=== PATIENT | female | born 1940 ===

== ENCOUNTER 2017-05-21 07:27 | Inpatient (IN) | payer OTHER ==
[~2017-05-21] VITALS: Ht 162.6 cm; Wt 86.2 kg
[~2017-05-21 07:27] MED LIST: CEFADROXIL500 MG PO; LISINOPRIL-HCTZ1 TA7 PO; METFORMIN HCL500 MG PO; PERCOCET 5/3251 TAB PO; XARELTO10 MG PO; ZOCOR40 MG; ZOCOR40 MG PO
[2017-05-28] MEDS ORDERED: PERCOCET 5-3251 EACH PO (14:42)
[2017-05-28] MEDS ORDERED: CEFADROXIL500 MG PO (14:42)
[2017-05-28] MEDS ORDERED: XARELTO10 MG PO (14:42)
== END 2017-05-28 16:44 | DRG 470 ==
LOC: O/R 05-26 06:30 → SURH 05-26 07:45 → SURG 05-27 13:40
PROVIDERS: Orthopaedic Surgery
PROC: 0SRD0J9 Replacement of Left Knee Joint with Synthetic Substitute, Cemented, Open Approach (ICD-10-PCS; principal; 2017-05-26 12:00)
DX: M17.12 Unilateral primary osteoarthritis, left knee (principal); D62 Acute posthemorrhagic anemia; M81.0 Age-related osteoporosis without current pathological fracture; I10 Essential (primary) hypertension; E11.9 Type 2 diabetes mellitus without complications

== ENCOUNTER 2017-05-28 18:43 | Inpatient (IN) | payer OTHER ==
[~2017-05-28] VITALS: Ht 167.6 cm; Wt 77.1 kg
[~2017-05-28 18:43] MED LIST changes: +PERCOCET 5-3251 EACH PO
[2017-06-03] MEDS ORDERED: XARELTO20 MG PO (10:57)
[2017-06-03] MEDS ORDERED: XARELTO15 MG PO (10:57)
[2017-06-03] MEDS ORDERED: VASOTEC10 MG PO (10:57)
== END 2017-06-03 19:21 | DRG 206 ==
LOC: ER 18:43 → MEDI 21:03 → SEC-K 21:03 → MEDI 05-29 14:54
PROC: 4A033R1 Measurement of Arterial Saturation, Peripheral, Percutaneous Approach (ICD-10-PCS; principal; 2017-05-28)
PROC: 3E0F7GC Introduction of Other Therapeutic Substance into Respiratory Tract, Via Natural or Artificial Opening (ICD-10-PCS; 2017-05-28)
PROC: CB121ZZ Planar Nuclear Medicine Imaging of Lungs and Bronchi using Technetium 99m (Tc-99m) (ICD-10-PCS; 2017-05-28)
PROC: 4A12X4Z Monitoring of Cardiac Electrical Activity, External Approach (ICD-10-PCS; 2017-05-29)
PROC: BB24ZZZ Computerized Tomography (CT Scan) of Bilateral Lungs (ICD-10-PCS; 2017-05-31)
DX: J95.89 Other postprocedural complications and disorders of respiratory system, not elsewhere classified (principal); Y83.8 Other surgical procedures as the cause of abnormal reaction of the patient, or of later complication, without mention of misadventure at the time of the procedure; Y92.238 Other place in hospital as the place of occurrence of the external cause; R09.02 Hypoxemia; I10 Essential (primary) hypertension; E11.9 Type 2 diabetes mellitus without complications; Z96.652 Presence of left artificial knee joint; M17.12 Unilateral primary osteoarthritis, left knee; M81.0 Age-related osteoporosis without current pathological fracture